=== PATIENT | male | born 1995 | race Caucasian/White ===

== ENCOUNTER 2016-07-04 12:19 | Emergency (ER) | payer BC, OTHER ==
[2016-07-04 12:25] VITALS: BP 151/75; PULSE 87; RESP 18; TEMP 98.1; O2SAT 98
--- NOTE | 2016-07-04 12:32 | EDPHY ---
H & P Stated Complaint: L ankle injury Time Seen by Provider: 07/04/16 12:31 HPI/ROS: CHIEF COMPLAINT: Left ankle injury resulting in pain, swelling and ecchymosis HISTORY OF PRESENT ILLNESS: The patient presents to the ED with complaints of a left ankle injury which is resulting in pain, swelling and ecchymosis. The patient sustained an inversion injury to his ankle yesterday. The patient was initially able to weight bear. Over the past 12 hours he has developed increasing pain and swelling. The patient denies any numbness or weakness. He denies additional traumatic injury. The patient denies prior history of orthopedic ankle surgery. REVIEW OF SYSTEMS: A comprehensive 10 point review of systems is otherwise negative aside from elements mentioned in the history of present illness. Source: Patient Exam Limitations: No limitations - Personal History Current Tetanus Diphtheria and Acellular Pertussis (TDAP): Yes - Medical/Surgical History Hx Asthma: No Hx Chronic Respiratory Disease: No Hx Diabetes: No Hx Cardiac Disease: No Hx Renal Disease: No Hx Cirrhosis: No Hx Alcoholism: No Hx HIV/AIDS: No Hx Splenectomy or Spleen Trauma: No Other PMH: wisdom teeth removed - Social History Smoking Status: Never smoked - Physical Exam Exam: General appearance: alert no distress Left ankle: There is swelling and tenderness over the lateral malleolus. Ankle joint is stable and there is no tenderness over the Achilles tendon. The foot is nontender without swelling. Neurologic exam: The patient has normal sensation and motor function distal to the injury. Vascular exam: Normal pulses and capillary refill in the foot DIFFERENTIAL DIAGNOSIS: After history and physical exam differential diagnosis was considered for ankle injury including sprain, fracture, dislocation and soft tissue injury. Constitutional: Initial Vital Signs Temperature (C) 36.7 C 07/04/16 12:23 Heart Rate 87 07/04/16 12:23 Respiratory Rate 18 07/04/16 12:23 Blood Pressure 151/75 H 07/04/16 12:23 O2 Sat (%) 98 07/04/16 12:23 O2 Delivery Mode Room Air Allergies/Adverse Reactions: No Known Allergies Allergy (Unverified 07/04/16 12:23) Home Medications: Medication Instructions Recorded NK [No Known Home Meds] 07/04/16 Medical Decision Making - Diagnostics Imaging Results: Imaging Impressions Ankle X-Ray 07/04/16 12:34 Impression: No definite acute fracture is identified. Imaging: Discussed imaging studies w/ teacher physically impaired Radiologist ED Course/Re-evaluation: The patient presents to the emergency department with complaints of left ankle pain and swelling. The patient's x-ray demonstrates no evidence of an obvious fracture. The patient has been provided a Lombardo boot and crutches. The patient has been given customary ankle sprain aftercare instructions. The patient should follow up with our foot and ankle specialist for any pain, swelling or instability that persists past 7-10 days. Departure - Departure Disposition: Home, Routine, Self-Care Clinical Impression: Left ankle sprain Qualifiers: Encounter type: initial encounter Involved ligament of ankle: calcaneofibular ligament Qualified Code(s): S93.412A - Sprain of calcaneofibular ligament of left ankle, initial encounter Condition: Good Instructions: Ankle Sprain (ED) Additional Instructions: 1. Take Ibuprofen or Motrin 600 mg by mouth three times a day. 2. Ice and elevate as directed. 3. Lombardo boot and crutches as needed for ambulation. 4. Your x-ray demonstrates no evidence of an obvious fracture today. Please follow up with the orthopedic surgeon you have been referred to for any pain, swelling or instability that persists past 7-10 days as this may be the sign of an injury not seen on the x-ray today. Referrals: Cedric Zaragoza MD [Medical Doctor] - As per Instructions
== END 2016-07-04 13:19 | disposition home or self-care (01) ==
DX: S93.412A Sprain of calcaneofibular ligament of left ankle, initial encounter (principal); X58.XXXA Exposure to other specified factors, initial encounter; Y93.89 Activity, other specified
CPT/HCPCS: L4386